=== PATIENT | female | born 1950 | race Caucasian/White ===

== ENCOUNTER → 2017-03-21 | Day surgery (SDC) | payer MEDICARE, OTHER, MEDICAID ==
[~2017-03-21] MED LIST: Lactated Ringers 1,000 ML IV SCH; Propofol 200 MG/20 ML SDV IV ONE
[2017-03-21 10:27] VITALS: BP 131/80
--- NOTE | 2017-03-21 13:11 | OR ---
DATE OF OPERATION: 03/21/2017 PREOPERATIVE DIAGNOSIS: 1. PERSISTENT GASTROESOPHAGEAL REFLUX DISEASE. 2. DYSPEPSIA WITH ABDOMINAL BLOATING. POSTOPERATIVE DIAGNOSIS: 1. PERSISTENT GASTROESOPHAGEAL REFLUX DISEASE. 2. DYSPEPSIA WITH ABDOMINAL BLOATING. SURGEON: Tu Guevara MD PROCEDURE: EGD WITH BIOPSIES X3, JUDSON. ANESTHESIA: CARE ANALYST due to persistent reflux. COMPLICATIONS: None. SPECIMEN: 1. Antral biopsy x2. 2. EG junction biopsy x1. 3. Antral JUDSON. FINDINGS: 1. Full-length EGD. 2. Diffuse antral gastritis without ulceration. 3. Spontaneous reflux with minimal esophagitis, no stricturing, ulceration, or West's changes. RECOMMENDATIONS: Proton pump inhibitor with close followup with primary provider. The patient may want to consider avoidance of anti-inflammatories. INDICATIONS: The patient has been having some ongoing dyspepsia, abdominal bloating, and reflux. Chloe Mahmood sent her for EGD. DESCRIPTION OF PROCEDURE: The patient was prepped and draped, placed in the left lateral decubitus position. A lubricated Olympus gastroscope was inserted and easily intubated in the esophagus. Esophageal lining was benign in its entire course. The Z-line was crisp and sharp around 39 cm. There was no hiatal hernia present. There was some spontaneous reflux, but no significant distal esophagitis, stricturing, ulceration, or West's changes. The Z-line had a small amount of inflammation at one spot which was biopsied, but no ulcerations were seen. The scope was advanced into the stomach through the pylorus and into the third portion of duodenum. The second and third portion of the duodenum along with the duodenal bulb appeared benign. The scope was brought back into the stomach, retroflexed the upper fundus and cardia were essentially unremarkable. There had been a small amount of dilatation suggesting very minimal hernia present. Straightening allowed full visualization of the fundus and antrum. Fundus was unremarkable. There were no polyps or lesions throughout the stomach. Antrum had some mild and diffuse gastritis without ca ulceration or erosion. Two biopsies were taken along with a JUDSON test. Air was then suctioned. Scope removed without complication. DEJAH/ANGY /[id number]
== END ==
LOC: CC.SDS 08:22
PROVIDERS: ATTEND Family Medicine
DX: K21.0 Gastro-esophageal reflux disease with esophagitis (principal); K29.50 Unspecified chronic gastritis without bleeding; R10.13 Epigastric pain; R14.0 Abdominal distension (gaseous); E78.5 Hyperlipidemia, unspecified; I10 Essential (primary) hypertension; Z98.51 Tubal ligation status; Z98.890 Other specified postprocedural states; Z79.82 Long term (current) use of aspirin; Z79.899 Other long term (current) drug therapy
CPT/HCPCS: 43239; 87081; J2704; J7120; 00740; 88305

== ENCOUNTER → 2018-10-29 | Day surgery (SDC) | payer MEDICARE, OTHER ==
[~2018-10-29] MED LIST changes: -Lactated Ringers 1,000 ML IV SCH; +Lidocaine 1% 20 ML MDV ONE; -Propofol 200 MG/20 ML SDV IV ONE
[2018-10-29 14:25] VITALS: BP 148/90
--- NOTE | 2018-10-30 08:53 | OR ---
DATE OF OPERATION: 10/29/2018 PREOPERATIVE DIAGNOSIS: VENOUS INSUFFICIENCY WITH PAINFUL VARICOSITIES. POSTOPERATIVE DIAGNOSIS: VENOUS INSUFFICIENCY WITH PAINFUL VARICOSITIES. SURGEON: Tu Guevara MD PROCEDURE: ERNA, RIGHT GSV. ANESTHESIA: Local with tumescent. COMPLICATIONS: None. SPECIMEN: None. FINDINGS: Successful ENRA, right GSV. INDICATIONS: The patient has documented venous insufficiency on ultrasound of her right greater saphenous vein. She elected to proceed with endovenous ablation. DESCRIPTION OF PROCEDURE: The patient was brought to the operating room suite and the insufficient saphenous vein mapped via ultrasound and diagrammed on the overlying skin along with access site. Access site was below the calf. Her right leg was prepped and draped in sterile fashion. The patient was placed in reverse Trendelenburg position, and local anesthesia of 1% lidocaine was instilled near the access site in the calf, and the vein was accessed using Seldinger technique, using a guidewire through the needle. After needle removed, a small incision was made with an 11 blade scalpel, and 6-[place] sheath was exchanged over the guidewire without complication and was held in place by skin tension. After the guidewire was removed, the sheath was flushed. The radiofrequency probe was placed into the vein through the sheath and positioned approximately 4 to 5 cm distal to the saphenofemoral junction. The patient has split GSV in the upper thigh, and it was hard to get up near the saphenofemoral junction, but her reflux is more in the mid thigh, and so we are above the area of concern as well. After probe position verified, tumescent anesthesia was infiltrated under ultrasound guidance into the perivenous compartment from the tip of the catheter to the access site without complication, achieving a nice halo effect. The patient was then placed back in Trendelenburg position to exsanguinate the superficial system. After catheter position again confirmed and with direct external compression along the length of the heating element, radiofrequency energy was applied. The vein was ablated by heating a 7 cm segment and indexing the catheter forward 6.5 cm until treatment length complete. Device temperature was maintained at 120 degrees Celsius with an initial power level of 40 wilkinson, dropping to below 20 for each treatment. Total treatment time was 1 minute and 40 seconds with 5 radiofrequency cycles; 400 mL of tumescent anesthesia was used. The catheter and the sheath were withdrawn and hemostasis achieved with direct pressure. Followup ultrasound confirmed successful ablation and good flow in the deep system. The patient was wrapped in a compression wrap from the level of the foot to the groin. She was stable in the recovery room. DEJAH/ANGY /[id number]
== END ==
LOC: CC.SDS 09:09
PROVIDERS: ATTEND Family Medicine
DX: I87.2 Venous insufficiency (chronic) (peripheral) (principal); I83.811 Varicose veins of right lower extremity with pain; Z88.1 Allergy status to other antibiotic agents; Z88.5 Allergy status to narcotic agent; Z88.8 Allergy status to other drugs, medicaments and biological substances
CPT/HCPCS: 36475; A4216

== ENCOUNTER → 2018-11-04 | Day surgery (SDC) | payer MEDICARE, OTHER ==
[2018-11-04 10:01] VITALS: BP 133/85
--- NOTE | 2018-11-05 09:13 | OR ---
DATE OF OPERATION: 11/04/2018 PREOPERATIVE DIAGNOSIS: VENOUS INSUFFICIENCY WITH PAINFUL VARICOSITIES. POSTOPERATIVE DIAGNOSIS: VENOUS INSUFFICIENCY WITH PAINFUL VARICOSITIES. SURGEON: Tu Guevara MD PROCEDURE: ENDOVENOUS LASER ABLATION, LEFT GREAT SAPHENOUS VEIN. ANESTHESIA: Local with tumescent. COMPLICATIONS: None. SPECIMEN: None. FINDINGS: Successful ERNA, left GSV. INDICATIONS: The patient has documented saphenofemoral insufficiency and she has symptomatic varicose veins. She elected to proceed with endovenous ablation. DESCRIPTION OF PROCEDURE: The patient was brought to the operating room suite and insufficient saphenous vein mapped via ultrasound and diagrammed in the overlying skin in the left lower extremity along with access site. The entire limb was prepped and draped in sterile fashion. The patient was placed in reverse Trendelenburg position. Local anesthesia was instilled at the access site around the left calf. Vein was accessed using Seldinger technique under ultrasound guidance. Guidewire was introduced through the needle. The needle was removed. A small incision was made with an 11-blade scalpel. The guidewire was then exchanged for a 6-Armenian sheath, which was held in place by skin tension. After guidewire was removed, the sheath was flushed. Radiofrequency probe was then placed into the vein through the sheath and positioned approximately 2.1 cm distal to the saphenofemoral junction under ultrasound guidance. Once radiofrequency probe position again verified via ultrasound, tumescent anesthesia was infiltrated under ultrasound guidance into the perivenous compartment along the length of the vein from the entrance site to the saphenofemoral junction achieving a halo effect. The patient was placed back in Trendelenburg position to exsanguinate the superficial venous system after probe position again confirmed via ultrasound. With direct external compression along the length of the heating element, radiofrequency energy was applied. The vein was ablated heating a 7-cm segment and indexing the catheter forward 6.5 cm until treatment length complete. Device temperature was maintained at 120 degrees Celsius with an initial power level 40 W, dropping below 20 for each treatment. The total treatment time was 3 minutes and 20 seconds with 10 radiofrequency cycles. Total tumescent used was 400 mL. Ultrasound confirmed successful treatment. Catheter and sheath were withdrawn and hemostasis was achieved at the access site with direct pressure. Skin incision was closed with a bandage. The entire leg was wrapped with a compression and Piotr from the level of the foot to the groin and the patient was stable in the recovery room. DEJAH/ANGY /[id number]
== END ==
LOC: CC.SDS 07:44
PROVIDERS: ATTEND Family Medicine
DX: I83.812 Varicose veins of left lower extremity with pain (principal); I87.2 Venous insufficiency (chronic) (peripheral)
CPT/HCPCS: 36475; A4216

== ENCOUNTER 2024-03-26 08:06 | Day surgery (SDC) | payer MEDICARE ==
[2024-03-26] MEDS: Lactated Ringers 1,000 ML IV SCH (08:29)
[2024-03-26 13:52] VITALS: BP 138/63; PULSE 64
== END 2024-03-26 10:55 | disposition home or self-care (01) ==
LOC: CC.SDS 08:06
PROVIDERS: ATTEND Family Medicine
DX: Z12.11 Encounter for screening for malignant neoplasm of colon (principal); K57.30 Diverticulosis of large intestine without perforation or abscess without bleeding; K21.9 Gastro-esophageal reflux disease without esophagitis; E78.5 Hyperlipidemia, unspecified; E87.1 Hypo-osmolality and hyponatremia; I10 Essential (primary) hypertension; Z88.5 Allergy status to narcotic agent; Z88.8 Allergy status to other drugs, medicaments and biological substances; Z79.82 Long term (current) use of aspirin; Z79.899 Other long term (current) drug therapy
CPT/HCPCS: J7120

== ENCOUNTER 2025-05-15 21:00 | Emergency (ER) | payer MEDICARE, OTHER ==
[2025-05-15 21:16] VITALS: BP 153/83; PULSE 74
[2025-05-15] MEDS: Lidocaine 1% with EPINEPHrine 1:100,000 10 ML MDV INJECT ONE (21:19)
[2025-05-15] MEDS: Bacitracin Oint 1 GM U/D Packet TOP ONE (21:49)
== END 2025-05-15 22:30 | disposition home or self-care (01) ==
LOC: CC.ED 21:00
DX: S91.114A Laceration without foreign body of right lesser toe(s) without damage to nail, initial encounter (principal); I10 Essential (primary) hypertension; K21.9 Gastro-esophageal reflux disease without esophagitis; Z79.82 Long term (current) use of aspirin; Z79.899 Other long term (current) drug therapy; Z88.8 Allergy status to other drugs, medicaments and biological substances; Z88.1 Allergy status to other antibiotic agents; Z88.5 Allergy status to narcotic agent
CPT/HCPCS: 12001; 99282; 99283